=== PATIENT | male | born 1955 | race Caucasian/White ===

== ENCOUNTER 2016-07-16 11:09 | Outpatient (CLI) | payer BC | END 2016-07-16 18:58 | disposition home or self-care (01) | LOC: SRD 11:09 | PROVIDERS: ATTEND Family Medicine | DX: S69.92XA Unspecified injury of left wrist, hand and finger(s), initial encounter (principal); S59.902A Unspecified injury of left elbow, initial encounter; M19.012 Primary osteoarthritis, left shoulder; M19.042 Primary osteoarthritis, left hand; W19.XXXA Unspecified fall, initial encounter; X58.XXXA Exposure to other specified factors, initial encounter; Y93.89 Activity, other specified; Y92.89 Other specified places as the place of occurrence of the external cause; Y99.8 Other external cause status | CPT/HCPCS: 73060-TC; 73090 ==